=== PATIENT | female | born 1990 | race African-American/Black ===

== ENCOUNTER 2018-11-20 22:43 | Emergency (ER) | payer SELFPAY ==
[~2018-11-20] VITALS: Ht 154.9 cm; Wt 158.8 kg
[~2018-11-20 22:43] MED LIST: PREDNISONE20 MG ORAL
[2018-11-20 23:00] VITALS: BP 121/87
[2018-11-20] MEDS ORDERED: Albuterol ud Inhalation HHN ONE (23:15)
--- NOTE | 2018-11-20 23:24 | Emergency Room Report ---
History of Present Illness General Chief Complaint: Upper Respiratory Illness Source: Patient Present Illness HPI This is a 27-year-old female with no past medical history. She presents with chief complaint of shortness of breath and wheezing. There is been ongoing for months. Intermittently. Worse when she lay flat. She is been coughing up some sputum. No nausea no vomiting. No fever chills. She said when she gets sick she gets very sick with coughing. No history of asthma. Allergies: Coded Allergies: No Known Allergies (Unverified , 04/21/16) Patient History Past Medical History: see triage record, old chart reviewed Past Surgical History: none Pertinent Family History: none Social History: Denies: smoking Last Menstrual Period: 10/28/2018 Now: No Immunizations: other Reviewed Nursing Documentation: PMH: Agreed; PSxH: Agreed Nursing Documentation-PMH Past Medical History: No Stated History Hx Gastrointestinal Problems: Yes - acid reflux,gastritis,cholecystectomy 2016 Review of Systems Eye: Denies: eye pain, blurred vision ENT: Denies: ear pain, nose congestion, throat swelling Respiratory: Reports: cough, shortness of breath, wheezing Cardiovascular: Denies: chest pain, palpitations Gastrointestinal: Denies: abdominal pain, diarrhea, nausea, vomiting Musculoskeletal: Denies: back pain, joint pain Skin: Denies: rash Neurological: Denies: headache, numbness Endocrine: Denies: increased thirst, increased urine Hematologic/Lymphatic: Denies: easy bruising All Other Systems: negative except mentioned in HPI Physical Exam Vital Signs Date Time Temp Pulse Resp B/P (MAP) Pulse Ox O2 Delivery O2 Flow Rate FiO2 11/20/18 22:51 98.1 96 17 121/87 (98) 97 Room Air Vitals normal Sp02 EP Interpretation: reviewed, normal General Appearance: well appearing, no apparent distress, alert, obese Head: normocephalic, atraumatic Eyes: bilateral eye PERRL, bilateral eye EOMI ENT: hearing grossly normal, normal pharynx Neck: full range of motion, supple, no meningismus Respiratory: chest non-tender, wheezing - Expiratory Cardiovascular #1: regular rate, rhythm, no murmur Gastrointestinal: normal bowel sounds, non tender, no mass, no organomegaly, no bruit, non-distended Musculoskeletal: back normal, gait/station normal, normal range of motion Psychiatric: mood/affect normal Medical Decision Making Diagnostic Impression: Primary Impression: Reactive airway disease Qualified Codes: J45.21 - Mild intermittent asthma with (acute) exacerbation ER Course Patient presents with wheezing. She may have asthma to be a secondary to her obesity and sleep apnea. [place] better after breathing treatment. Will discharge home with inhaler. Chest X-Ray Diagnostic Results Chest X-Ray Diagnostic Results : Chest X-Ray Ordered: Yes # of Views/Limited/Complete: 1 View Indication: Shortness of Breath EP Interpretation: Yes Interpretation: no consolidation, no effusion, no pneumothorax, no acute cardiopulmonary disease Impression: No acute disease Electronically Signed by: Carlos Eduardo Mancini MD Last Vital Signs Date Time Temp Pulse Resp B/P (MAP) Pulse Ox O2 Delivery O2 Flow Rate FiO2 11/20/18 23:00 98.1 80 17 121/87 97 Room Air Status: improved Disposition: HOME, SELF-CARE Condition: Stable Scripts Albuterol Sulfate* (ALBUTEROL SULFATE MDI*) 8.5 Gm Hfa.aer.ad 2 PUFF INH Q4H PRN for cough/wheezing, #1 EA 0 Refills Prov: Carlos Eduardo Mancini MD 11/21/18 Additional Instructions: Follow-up with your doctor in 7 days. Return if symptoms worsen. Carlos Eduardo Mancini MD Nov 20, 2018 23:24
[2018-11-21] MEDS ORDERED: ALBUTEROL SULF8.5 GM INH (00:10)
[2018-11-21 00:22] VITALS: BP 121/87
--- NOTE | 2018-11-21 12:24 | Diagnostic Imaging Report ---
Indication: Dyspnea Comparison: None A single view chest radiograph was obtained. Findings: Exam limited due to large body habitus. Cardiomediastinal appearance is within normal limits for age. The lungs are clear. Pulmonary vascularity is appropriate. The diaphragmatic contour is smooth and costophrenic angles are sharp. No pleural effusions are identified. The bones are unremarkable. Impression: No acute findings
== END 2018-11-21 00:20 | disposition home or self-care (01) ==
LOC: EMR 23:07
DX: J45.21 Mild intermittent asthma with (acute) exacerbation (principal)
CPT/HCPCS: 71045; 94640; 94664; 99284

== ENCOUNTER 2018-11-22 12:08 | Emergency (ER) | payer SELFPAY ==
[~2018-11-22] VITALS: Ht 154.9 cm; Wt 158.8 kg
[~2018-11-22 12:08] MED LIST changes: +ALBUTEROL SULF8.5 GM INH
--- NOTE | 2018-11-22 12:55 | NUR ---
ED Nurse Note: PT WALKED IN TO ER TODAY FROM HOME. AOX4. PT C/O RIGHT KNEE AND FOOT PAIN, 8/10 X 4 WEEKS AGO AFTER FALL AT WORK. NO OBVIOUS DEFORMITY, FULL ROM OF EXTREMITY AND DIGITS, CAP REFILL <3 SECONDS, CIRCULATION AND SENSATION INTACT. SKIN CLEAN, DRY, AND INTACT.
--- NOTE | 2018-11-22 13:08 | NUR ---
ED Nurse Note: XRAY AT BEDSIDE.
--- NOTE | 2018-11-22 13:59 | Emergency Room Report ---
History of Present Illness General Chief Complaint: Lower Extremity Injury Source: Patient Present Illness HPI This patient states that 3 weeks ago she stood up while she was at work and her foot had fallen asleep. She states she stood up suddenly and did not realize her foot was asleep and she fell onto her right side and twisted her right ankle and right knee. She states that she has been working and the pain has been aggravated over the past couple days. She states that she is on her feet and walking a lot at her job. She denies weakness. She denies tingling or numbness. She denies swelling. She has no other complaints. Allergies: Coded Allergies: No Known Allergies (Unverified , 04/21/16) Patient History Past Medical History: none, GERD Past Surgical History: maco, Social History: Denies: smoking, alcohol use, drug use Last Menstrual Period: 10/28/17 Now: No : 2 Para: 2 Reviewed Nursing Documentation: PMH: Agreed; PSxH: Agreed Nursing Documentation-PMH Past Medical History: No History, Except For Hx Gastrointestinal Problems: Yes - acid reflux,gastritis,cholecystectomy 2016 Review of Systems All Other Systems: negative except mentioned in HPI Physical Exam Vital Signs Date Time Temp Pulse Resp B/P (MAP) Pulse Ox O2 Delivery O2 Flow Rate FiO2 11/22/18 12:29 98.1 88 20 108/65 (79) 98 Room Air Sp02 EP Interpretation: reviewed, normal General Appearance: no apparent distress, alert, GCS 15, non-toxic, obese Head: normocephalic, atraumatic Eyes: bilateral eye normal inspection, bilateral eye PERRL ENT: hearing grossly normal, normal pharynx, no angioedema, normal voice Neck: normal inspection Respiratory: no respiratory distress, no retraction, no accessory muscle use, speaking full sentences Gastrointestinal: normal bowel sounds, non tender, soft, non-distended, no guarding, no rebound Rectal: deferred Musculoskeletal: back normal, gait/station normal, normal range of motion, other - +TTP in R. anterior/lateral foot. +w/ROM of R. knee. Neurologic: alert, oriented x3, responsive, motor strength/tone normal, sensory intact, speech normal Psychiatric: judgement/insight normal, memory normal, mood/affect normal, no suicidal/homicidal ideation Medical Decision Making Diagnostic Impression: Primary Impression: Ankle sprain Additional Impression: Knee sprain ER Course This patient has a clinical presentation consistent with ankle and knee sprain. Imaging showed no acute fracture. The patient was placed in an mary beth wrap. No emergency medical condition is identified at this time. I warned the patient that plain x-rays have a significant false-negative rate. Factors, significant soft tissue injuries, and other pathology may be present even though not seen on x-ray. Injuries serious enough to ultimately require surgery may be present with normal x-rays. This can occur because some fractures or not initially visible on plain film x-rays or, rarely, the radiologist may discover a subtle fracture that I missed on my preliminary read. It was explained that close outpatient followup is required to evaluate this possibility. If all symptoms resolve or improve significantly in the coming weeks, no further testing is needed. However, if the pain/symptoms persist, additional studies such as MRI/CT or repeat x-ray would be needed to rule out the possibility of serious soft tissue injury. The patient agreed to followup as directed. Last Vital Signs Date Time Temp Pulse Resp B/P (MAP) Pulse Ox O2 Delivery O2 Flow Rate FiO2 11/22/18 12:29 98.1 88 20 108/65 (79) 98 Room Air Status: improved Disposition: HOME, SELF-CARE Condition: Improved Patient Instructions: Ankle Sprain, Knee Sprain [place] DO Nov 22, 2018 13:59
--- NOTE | 2018-11-22 14:01 | NUR ---
ED Nurse Note: PT LAYING PEACEFULLY IN BED IN NAD. AOX4. DISCHARGE PAPERWORK EXPLAINED TO PT. PT VERBALIZES UNDERSTANDING AND ALL QUESTIONS ANSWERED. DISCHARGE PAPERWORK GIVEN TO PT AND ID WRISTBAND REMOVED. PT WALKED OUT OF ER WITH STEADY GAIT AND ALL BELONGINGS.
[2018-11-22 14:04] VITALS: BP 112/68
--- NOTE | 2018-11-22 14:37 | Diagnostic Imaging Report ---
Indication: Foot Pain Comparison: None Findings: 3 views of the right foot were obtained. No acute fractures, malalignment, erosions or periostitis are identified. Impression: No acute findings.
--- NOTE | 2018-11-22 14:40 | Diagnostic Imaging Report ---
Indication: Pain Knee pain/trauma 3 views of the right knee were obtained. Findings: No acute fracture, malalignment, or joint effusion are identified. There is a moderate degree of anterior soft tissue swelling. Impression: No fracture. Moderate anterior soft tissue swelling presumably contusion injury
== END 2018-11-22 14:05 | disposition home or self-care (01) ==
LOC: EMR 13:30
DX: S93.401A Sprain of unspecified ligament of right ankle, initial encounter (principal); S83.91XA Sprain of unspecified site of right knee, initial encounter; X50.1XXA Overexertion from prolonged static or awkward postures, initial encounter; Y92.9 Unspecified place or not applicable; Y99.0 Civilian activity done for income or pay; K21.9 Gastro-esophageal reflux disease without esophagitis; Z90.49 Acquired absence of other specified parts of digestive tract; E66.9 Obesity, unspecified; Z68.44 Body mass index [BMI] 60.0-69.9, adult
CPT/HCPCS: 99284